=== PATIENT | male | born 1950 | race Caucasian/White ===

== ENCOUNTER 2020-06-06 15:57 | Emergency (ER) | payer BC ==
[~2020-06-06] VITALS: Ht 175.3 cm; Wt 65.8 kg
[2020-06-06] MEDS ORDERED: ELIQUIS5 MG PO (21:03)
[2020-06-06] MEDS ORDERED: ONDANSETRON ODT8 MG PO (21:12)
[2020-06-06] MEDS ORDERED: OXYCODONE HCL5 M1 PO (21:12)
== END 2020-06-06 21:56 | disposition short-term general hospital (02) ==
LOC: ED 15:57
DX: K85.90 Acute pancreatitis without necrosis or infection, unspecified (principal); I81 Portal vein thrombosis; E87.1 Hypo-osmolality and hyponatremia; F17.200 Nicotine dependence, unspecified, uncomplicated
CPT/HCPCS: 74177; 76705; 80053; 81001; 83690; 83735; 85025; 96361; 96375; 99285-25; J1170; J2405; J7030; Q9967

== ENCOUNTER 2020-08-04 17:27 | Emergency (ER) | payer BC ==
[~2020-08-04] VITALS: Ht 175.3 cm; Wt 61.2 kg
[~2020-08-04 17:27] MED LIST: ELIQUIS5 MG PO; ONDANSETRON ODT8 MG PO; OXYCODONE HCL5 M1 PO
== END 2020-08-05 01:35 | disposition short-term general hospital (02) ==
LOC: ED 17:27
DX: R17 Unspecified jaundice (principal); K55.059 Acute (reversible) ischemia of intestine, part and extent unspecified; I82.890 Acute embolism and thrombosis of other specified veins; K86.9 Disease of pancreas, unspecified; F17.200 Nicotine dependence, unspecified, uncomplicated; Z79.899 Other long term (current) drug therapy
CPT/HCPCS: 36415; 74177; 80053; 81001; 83690; 83735; 85025; 99285-25; Q9967

== ENCOUNTER 2020-10-19 20:02 | Emergency (ER) | payer BC ==
[~2020-10-19] VITALS: Ht 175.3 cm; Wt 60.8 kg
[~2020-10-19 20:02] MED LIST changes: +ATIVAN1 MG PO; +DEXAMETHASONE4 MG PO; +DOVONEX60 GM TOP; +NORCO 5-325 TA1 EACH PO; +OXYCODONE HCL5 MG PO; +TEMOVATE30 GM TOP; +ZOFRAN4 MG PO
[2020-10-19] MEDS ORDERED: GEMCITABINE HCL1 GM IV (20:29)
[2020-10-19] MEDS ORDERED: ABRAXANE100 MG IV (20:29)
[2020-10-19] MEDS ORDERED: LEVOFLOXACIN500 MG PO (23:12)
== END 2020-10-19 23:23 | disposition home or self-care (01) ==
LOC: ED 20:02
DX: R50.9 Fever, unspecified (principal); C25.9 Malignant neoplasm of pancreas, unspecified; Z20.828 Contact with and (suspected) exposure to other viral communicable diseases; F17.200 Nicotine dependence, unspecified, uncomplicated; Z79.899 Other long term (current) drug therapy
CPT/HCPCS: 71046; 80053; 81001; 83605; 85025; 87502; 99283-25; C9803; U0003

== ENCOUNTER 2021-03-18 08:55 | Day surgery (SDC) | payer BC ==
[~2021-03-18] VITALS: Ht 175.3 cm; Wt 68.2 kg
[~2021-03-18 08:55] MED LIST changes: +ABRAXANE100 MG IV; +BENADRYL25 MG PO; +GEMCITABINE HCL1 GM IV; +LEVOFLOXACIN500 MG PO
--- NOTE | 2021-03-18 12:14 | NUR ---
03/18/21 1214 Deb Herrera 1147 PT ARRIVED IN PACU SLEEPY WITH NO C/O'S. NOTICED 0.5CM SKIN TEAR TO L OUTER WRIST ON BONY PROMINENCE. CLEANED SKIN WITH WOUND CLEANSER AND PLACED ALEVYN GENTLE BORDER DRSG TO SITE. 1155 ICE [address] DR AT BEDSIDE TALKING WITH PT. NO C/O'S. 1213 PT TALKING WITH STAFF ABOUT UPCOMING [place] APPOINTMENTS.
--- NOTE | 2021-03-18 12:26 | NUR ---
PT IS BACK TO DS FROM PACU. CALL LIGHT WITHIN REACH. WATER ON BEDSIDE TABLE. PT IS REQUESTING JELLO. NO C/O'S PAIN. NO ADDITIONAL NEEDS AT THIS TIME.
--- NOTE | 2021-03-18 12:57 | NUR ---
PT ALERT, ORIENTED AND SUPPORTED BY HIS CAMILLA. THIS IS ANOTHER STEP IN HIS CANCER TREATMENT. EXPRESED CONFIDENCE IN DR HERNANDEZ, ALL QUESTIONS ASKED ANSWERED. PT REQUESTED PRAYER, WILL FOLLOW
--- NOTE | 2021-03-18 13:12 | OR ---
[facility] [address], [place] [address] Signed DATE OF OPERATION: 03/18/2021 SURGEON: Navin Hernandez MD PREOPERATIVE DIAGNOSIS: Pancreatic cancer. POSTOPERATIVE DIAGNOSIS: Pancreatic cancer. PROCEDURE: Diagnostic laparoscopy with liver biopsy and washings. ESTIMATED BLOOD LOSS: None. INDICATIONS: Edilia is a 71-year-old gentleman who last fall developed severe epigastric abdominal pain. He ended up with pancreatitis. However, he had developed jaundice, although the pancreatitis had resolved. A repeat CT scan showed a pancreatic tumor. He had endoscopic ultrasound and ERCP with placement of metal stent and biopsies. It came back adenocarcinoma of the pancreas. He went back and had a 2nd metal stent placed inside the 1st one. He has just completed chemotherapy with his medical oncologist. He apparently is borderline resectable. There is a question then whether he would undergo surgery versus radiation therapy at this time. I was asked by his pancreatic surgeon to undergo diagnostic laparoscopy with biopsies and washings. I had met with Edilia and his in the office. We had reviewed the above findings. We reviewed the diagnostic laparoscopy. They understand the expected intraop and postop course. There is risk to surgery including, but not limited to bleeding, infection, scarring, change in contour of the skin, damage to bowel, incisional hernias and other unforeseen comorbidities. They had expressed understanding and wished to proceed. PROCEDURE NOTE: After talking with Edilia and his in our preop area, we took him into the operating room. He was placed in the supine position under general endotracheal tube anesthesia. He was given preoperative antibiotics along with subcutaneous heparin. SCDs were utilized. He was then prepped and draped in the usual sterile fashion. We placed our Jonny trocar in the supraumbilical site under direct visualization without difficulty. We placed a 5 mm lateral right subcostal trocar as well as a 10 mm subxiphoid trocar under direct visualization without difficulty. We visually inspected the abdomen and Electronically Signed By: NAVIN HERNANDEZ MD 03/18/21 1312 PATIENT NAME: EDILIA PACE OPERATIVE REPORT DATE OF : 54 REPORT #: [id number] PHYSICIAN: NAVIN HERNANDEZ MD PCP: GLENN RODGERS MD REPORT IS CONFIDENTIAL AND NOT TO BE RELEASED WITHOUT AUTHORIZATION [facility] [address], [place] [address] Signed found no evidence of any metastatic disease. Specifically, nothing on the peritoneum, the mesentery, the omentum, the liver in particular or up over the dome of the liver and/or the diaphragm. We looked around the falciform ligament, it was unremarkable. Starke between the falciform ligament, the gallbladder with a small area that was not particularly concerning. Nevertheless, we decided to go ahead and sharply remove that from the surface of the liver and sent it off for pathologic review. We then cauterized that area gently. We looked around and underneath the liver on the right and left side as well as around the stomach, the lesser and greater curve and we looked around the gastrocolic ligament as well. We simply did not find any evidence for any metastatic disease. After this, we irrigated up over the liver and we withdrew around 250 mL of saline for washings. We then used our laparoscopic suturing device to pass 0 Vicryl suture on either side of the fascia of the subxiphoid trocar site. This was tied down to close this fascia primarily. After this, the gas was allowed to escape and the remaining two trocars were removed. We closed the fascia of the supraumbilical trocar site with interrupted [id number] and simple 0-Vicryl sutures. Local anesthetic was injected into all trocar sites. Each trocar site was irrigated and suctioned out until clear. The skin and dermis of each trocar site were closed with interrupted 3-0 subcuticular Monocryl sutures. Dry gauze and tape were applied to all three trocar sites. Edilia was then awakened from his anesthesia, extubated in the OR, and taken to the recovery room in stable condition. Navin Hernandez MD ALB/MODL /[id number] cc: MD Mayte Chau MD Robert C Quackenbush, MD Robert G Johnson, MD Jennifer Pasco, MD Electronically Signed By: NAVIN HERNANDEZ MD 03/18/21 1312 PATIENT NAME: EDILIA PACE OPERATIVE REPORT DATE OF : 54 REPORT #: [id number] PHYSICIAN: NAVIN HERNANDEZ MD PCP: GLENN RODGERS MD REPORT IS CONFIDENTIAL AND NOT TO BE RELEASED WITHOUT AUTHORIZATION [address] [address] Signed Nicolas Hagen MD Copies: NAVIN HERNANDEZ MD, SKYE C MD QUACKENBUSH, ROBERT C MD JOHNSON, ROBERT D DMD ~ Electronically Signed By: NAVIN HERNANDEZ MD 03/18/21 1312 PATIENT NAME: EDILIA PACE OPERATIVE REPORT DATE OF : 54 REPORT #: [id number] PHYSICIAN: NAVIN HERNANDEZ MD PCP: GLENN RODGERS MD REPORT IS CONFIDENTIAL AND NOT TO BE RELEASED WITHOUT AUTHORIZATION
--- NOTE | 2021-03-18 13:48 | NUR ---
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 HE IS ASSISTED UP OOB, ABLE TO AMBULATE HIMSELF TO THE BATHROOM AND BACK. LE 1330: PT HAS MET ALL DC CRITERIA AT THIS TIME. HE WOULD LIKE TO GO HOME. HE IS GIVEN VERBAL DC INSTRUCTIONS, BOTH HE AND HIS VERBALIZE UNDERSTANDING. PT IS EDUCATED ON HOW TO BEST DRESS HIMSELF. AND TO OPEN THE CURTAIN WHEN READY.
--- NOTE | 2021-03-18 13:54 | NUR ---
PT IS TAKEN TO VEHICLE IN . HE IS ABLE TO TRANSFER HIMSELF FROM TO CAR.
--- NOTE | 2021-03-24 10:20 | PATH ---
[facility] [address] [place], [place] [address] Signed SPECIMEN(S): A LIVER NEEDLE BIOPSY SPECIMEN SOURCE: A. LIVER NEEDLE BIOPSY CLINICAL HISTORY: Pancreatic cancer. FINAL PATHOLOGIC DIAGNOSIS: Liver, needle core biopsy: - Minute fragment of crushed fibrous tissue with benign-appearing biliary type ducts. COMMENT: The prior pancreas needle core biopsy from 08/05/2020 [id number]), diagnosed as adenocarcinoma, was reviewed. The ducts present in this biopsy specimen are lined by monotonous, small nuclei with no nuclear pleomorphism or chromatin irregularities. Mitoses are not identified. Liver parenchyma is not identified. Features of malignancy are not identified. The glands are morphologically distinctly different from the previously biopsied adenocarcinoma. The findings are nonspecific but could represent a portion of a bile duct hamartoma. Clinical correlation required. As part of [employer] Quality Improvement Program, this case was reviewed by another member of our pathology staff with subspecialty training in Gastrointestinal/Liver pathology. NAL:cml:C2NR MICROSCOPIC EXAMINATION: Histologic sections of all submitted blocks are examined by light microscopy. These findings, together with the gross examination, support the pathologic diagnosis. GROSS DESCRIPTION: The specimen, labeled "LG," and designated on the requisition "liver biopsy," is received in formalin and consists of a scanty tissue fragment measuring 0.5 x 0.1 x 0.1 cm. Specimen is inked with eosin, filtered, and entirely submitted in cassette (A1). Note: Original container with fluid retained for possible additional testing. AT (under the direct supervision of a pathologist) The Gross Description was prepared using a voice recognition system. The report PATIENT NAME: EDILIA PACE PATHOLOGY DATE OF : 54 REPORT #: [id number] PHYSICIAN: SARKIS PHILLIPS PCP: GLENN RODGERS MD REPORT IS CONFIDENTIAL AND NOT TO BE RELEASED WITHOUT AUTHORIZATION [facility] [address] [place] [address] Signed was reviewed for accuracy; however, sound-alike word errors, addition and/or deletions may occur. If there is any question about this report, please contact Client Services. PERFORMING LABORATORY: The technical component was [place] [address] (Lead Investigator: Leigha Massey MD; CLIA# [id number]). [facility], [address] [address] (CLIA# [id number]). Diagnostician: Smiley Choi MD Pathologist Electronically Signed 03/24/2021 Copies: ~ PATIENT NAME: EDILIA PACE PATHOLOGY DATE OF : 54 REPORT #: [id number] PHYSICIAN: [facility] PCP: GLENN RODGERS MD REPORT IS CONFIDENTIAL AND NOT TO BE RELEASED WITHOUT AUTHORIZATION
[2021-04-02] MEDS ORDERED: DECADRON4 MG PO (10:51)
== END 2021-03-18 13:45 | disposition home or self-care (01) ==
LOC: DS 08:55
PROVIDERS: ATTEND Colon & Rectal Surgery
PROC: 0FB04ZX Excision of Liver, Percutaneous Endoscopic Approach, Diagnostic (ICD-10-PCS; principal; 2021-03-18 10:15)
DX: C25.9 Malignant neoplasm of pancreas, unspecified (principal); Z91.041 Radiographic dye allergy status; Z79.01 Long term (current) use of anticoagulants
CPT/HCPCS: 00840; J0330; J0690; J1100; J1644; J1885; J2001; J2250; J2405; J2704; J7121

== ENCOUNTER 2021-12-18 19:15 | Emergency (ER) | payer BC ==
[~2021-12-18] VITALS: Ht 175.3 cm; Wt 49.9 kg
[~2021-12-18 19:15] MED LIST changes: +DECADRON4 MG PO
[2021-12-18] MEDS ORDERED: CEPHALEXIN500 MG PO (22:35)
--- NOTE | 2021-12-19 17:37 | EKG ---
[facility] [address] [facility] [place] [address] Signed Sinus rhythm with occasional premature ventricular complexes and premature atrial complexes Otherwise normal ECG When compared with ECG of 17-MAR-2021 14:53, premature ventricular complexes are now present premature atrial complexes are now present Confirmed by SAMUEL WEBER DO ([id number]) on 12/19/2021 5:37:08 PM Electronically Signed By: SAMUEL WEBER DO 12/19/21 1737 PATIENT NAME: EDILIA PACE NELY Electrocardiogram DATE OF : 54 PHYSICIAN: SAMUEL WEBER DO REPORT #: [id number] REPORT IS CONFIDENTIAL AND NOT TO BE RELEASED WITHOUT AUTHORIZATION
== END 2021-12-18 23:25 | disposition home or self-care (01) ==
LOC: ED 19:15
DX: N39.0 Urinary tract infection, site not specified (principal); R53.1 Weakness; L40.9 Psoriasis, unspecified; Z85.07 Personal history of malignant neoplasm of pancreas; F17.200 Nicotine dependence, unspecified, uncomplicated; Z91.041 Radiographic dye allergy status; Z79.01 Long term (current) use of anticoagulants; Z79.899 Other long term (current) drug therapy; Z20.822 Contact with and (suspected) exposure to COVID-19
CPT/HCPCS: 36415; 71045; 80053; 81001; 82310; 83690; 85025; 87088; 93005; 93010; 96374; 99285-25; J0696; J7040; U0003

== ENCOUNTER → 2022-01-10 | Emergency (ER) | payer BC ==
[~2022-01-10] VITALS: Ht 175.3 cm; Wt 48.3 kg
[~2022-01-10] MED LIST changes: +CEPHALEXIN500 MG PO
--- OUTSIDE RECORDS SUMMARY | 2022-01-10 09:04 | XMS ---
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 Care History Medical/Surgical 06/09/2020 [facility] - PATIENT HAS AN APT TO ESTABLISH CARE WITH DR VIVAR ON 06/24/2020. - CHW DISCUSSED RECENT ED VISIT WITH PCP AND THEY WILL LOOK INTO AN EARLIER APT IF PATIENT IS AVAILABLE. E.D. VISIT COUNT (12 MO.) 2 [facility] TOTAL 2 NOTE: Visits indicate total known visits. 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
--- NOTE | 2022-01-10 23:56 | EKG ---
[facility] [address] [facility] [place] [address] Signed Atrial fibrillation with rapid ventricular response Nonspecific ST and T wave abnormality Abnormal ECG When compared with ECG of 18-DEC-2021 20:46, Atrial fibrillation has replaced Sinus rhythm Vent. rate has increased BY 73 BPM Non-specific change in ST segment in Inferior leads ST now depressed in Anterolateral leads Nonspecific T wave abnormality now evident in Inferior leads Nonspecific T wave abnormality now evident in Lateral leads Confirmed by CRISTY TOBIN MD ([id number]) on 01/10/2022 11:55:55 PM Electronically Signed By: CRISTY TOBIN MD 01/10/22 2356 PATIENT NAME: EDILIA PACE Electrocardiogram DATE OF : 54 PHYSICIAN: CRISTY TOBIN MD REPORT #: [id number] REPORT IS CONFIDENTIAL AND NOT TO BE RELEASED WITHOUT AUTHORIZATION
== END ==
LOC: ED 08:55
DX: A41.9 Sepsis, unspecified organism (principal); C25.9 Malignant neoplasm of pancreas, unspecified; K75.0 Abscess of liver; L40.9 Psoriasis, unspecified; F17.200 Nicotine dependence, unspecified, uncomplicated; Z79.01 Long term (current) use of anticoagulants; Z79.899 Other long term (current) drug therapy; Z20.822 Contact with and (suspected) exposure to COVID-19
CPT/HCPCS: 36415; 71045; 71260; 74177; 80053; 81001; 83605; 83690; 83735; 85025; 87040; 93005; 93010; 96366; 96367; 96375; 96376; 99285-25; A9270; C9803; J0692; J1170; J2250; J2370; J3010; J7030; J7060; J7121; Q9967; U0003

== ENCOUNTER 2022-02-08 14:20 | Inpatient (IN) | payer BC, MEDICARE ==
[~2022-02-08] VITALS: Ht 175.3 cm; Wt 53.5 kg
--- NOTE | ~2022-02-08 | OR ---
[facility] [address], [place] [address] Draft DATE OF OPERATION: 02/11/2022 SURGEON: Daniel Austin MD PREOPERATIVE DIAGNOSES: 1. Significant anemia with episodic rectal bleeding. 2. History of stage IV pancreatic cancer with hepatic metastases, status post common duct stenting. 3. Relatively recent hepatic abscess requiring percutaneous drain (no longer draining). POSTOPERATIVE DIAGNOSES: 1. Giant bulbar duodenal ulcer, possibly related to a primary malignancy. 2. Small polyp right transverse colon (excised). PROCEDURES: 1. Esophagogastroduodenoscopy with biopsies. 2. Total colonoscopy to cecum with cold morcellation polypectomy x1. ANESTHESIA: Intravenous sedation, propofol infusion, Kelvin Goyal CRNA INDICATIONS: This 72-year-old white man is a patient of Dr. Glenn Rodgers who was admitted by Dr. Frias on February 08, 2022 for clinical complaint of syncope and finding of profound anemia. He has been transfused with 2 units of packed red cells and his hematocrit is now 26. He has had a small amount of rectal bleeding and no hematemesis. He has underlying pancreatic cancer which has shown hepatic metastases. He underwent common duct stenting quite sometime back and is under treatment of Dr. Woods and others with palliative chemotherapy. The patient has had no hematemesis. The patient did develop a number of weeks ago hepatic abscess which was treated by percutaneous drain which remains in place. He has had no evidence of bleeding through the drain itself and no hematemesis. He is admitted to undergo upper endoscopy and colonoscopy to better characterize the source of his anemia. He understands as does his the risk of bleeding, infection, perforation, and so on. FINDINGS: Upper endoscopy confirmed the source of his anemia. This was a very large bulbar ulcer which may be related to malignancy and possibly direct tumor extension. The common duct ampullary area was patent and easily identified. Impending obstruction of the junction PATIENT NAME: EDILIA PACE OPERATIVE REPORT DATE OF : 54 REPORT #: [id number] PHYSICIAN: DANIEL AUSTIN MD PCP: GLENN RODGERS MD REPORT IS CONFIDENTIAL AND NOT TO BE RELEASED WITHOUT AUTHORIZATION [facility] [address], [place] [address] Draft between the bulb and 2nd portion of the duodenum was noted, however, the scope was able to be manipulated through it to normal-appearing 3rd and 4th portion of the duodenum. The stomach itself had mild chronic inflammation. Biopsies were obtained of the ulcer to assess for malignancy as well as the stomach to assess for H pylori. The CLOtest was negative. There was distal esophagitis as well. On colonoscopy, complete colonoscopy was undertaken. There was a small polyp of the right transverse colon. There were AVMs noted of the rectum, which were not bleeding. DESCRIPTION OF PROCEDURE: The patient was brought to the endoscopy suite and placed in lateral decubitus position, given intravenous sedation with propofol infusional technique by the hot plate plywood press offbearer. Full cardiopulmonary monitoring was maintained. A bite block was placed and an Olympus video upper endoscope passed in the hypopharynx. The vocal cords were normal. The scope was advanced down the esophagus. I did not see evidence of portal hypertension (varices). The scope was passed into the stomach, which was insufflated with air. There was no sign of blood or clot. There was chronic inflammatory change. The pylorus was normal. Scope was passed into what appeared to be a cavernous large bulbar ulceration. There was no sign of active bleeding. The waxy consistency of the ulcers suggested possibility this represents direct tumor extension, though that is not certain. Various manipulations were required to pass beyond the bulbar portion to the more distal duodenum and area highly consistent with a patent ampulla was noted. Bile was seen to egress from the area. I saw no stent proper presuming that a stent is more proximally inserted into the common duct as had been postulated. Passage beyond this area to normal duodenum was rather challenging and obstruction of this limb is clinically a hazard it would appear. Ultimately, the scope was passed beyond it to a normal-appearing 3rd and 4th portion of the duodenum. The scope was withdrawn through this area and the edges of the ulceration were biopsied as was the base of the ulceration. Upon withdrawal of the stomach, the pylorus appeared to be normal. Biopsies were taken of the antrum for both TRELL and pathologic testing. Retroflexed view showed reasonable flap valve. The scope was withdrawn and distal esophagus was quite markedly inflamed and biopsied, but not neoplastic proper. Further withdrawal of the scope was undertaken and no other findings of concern. Plans were then made for colonoscopy. Digital rectal examination was normal. An Olympus video colonoscope was passed in the rectum and manipulated throughout the colon. In the right transverse colon, there was a small sessile polyp which was excised with cold morcellation technique. The scope was advanced beyond this to the cecum, which was normal. Withdrawal of scope was undertaken showing reasonably prepped bowel. There were no other findings of concern until the rectum where there were multiple arteriovenous malformations, none of which were bleeding or looked problematic. Scope PATIENT NAME: EDILIA PACE OPERATIVE REPORT DATE OF : 54 REPORT #: [id number] PHYSICIAN: DANIEL AUSTIN MD PCP: GLENN RODGERS MD REPORT IS CONFIDENTIAL AND NOT TO BE RELEASED WITHOUT AUTHORIZATION [facility] [address] [place], [place] [address] Draft was removed and the patient was taken to the recovery room in good condition. CONCLUSION DIAGNOSIS: No doubt his anemia is related to the profound ulcerative changes of the bulbar duodenum and suspect this may represent direct neoplastic process of the pancreas. Issues to be dealt with would include the possibility of not eminent but progression to duodenal obstruction. Options of management might include stenting versus palliative gastrojejunal bypass. For now, we will plan on intensive treatment of the ulcerative area of the duodenum. If prompt healing can be accomplished, then need for consideration for duodenal bypass or stenting can be avoided or delayed. If malignancy is noted at the base of the ulceration, ulcer treatment will be ineffective obviously. MD SARAH Redding/DONNIEL /[id number] cc: MD Jade Kim MD Robert C Quackenbush, MD Lohith Veerappa Reddy, MD Copies: GLENN RODGERS DMD, CYNTHIA MD QUACKENBUSH, ROBERT C MD REDDY, LOHITH VEERAPPA MD ~ PATIENT NAME: EDILIA PACE OPERATIVE REPORT DATE OF : 54 REPORT #: [id number] PHYSICIAN: DANIEL AUSTIN MD PCP: GLENN RODGERS MD REPORT IS CONFIDENTIAL AND NOT TO BE RELEASED WITHOUT AUTHORIZATION
--- OUTSIDE RECORDS SUMMARY | 2022-02-08 14:28 | XMS ---
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 Care History Medical/Surgical 06/09/2020 [facility] - PATIENT HAS AN APT TO ESTABLISH CARE WITH DR VIVAR ON 06/24/2020. - CHW DISCUSSED RECENT ED VISIT WITH PCP AND THEY WILL LOOK INTO AN EARLIER APT IF PATIENT IS AVAILABLE. Kayce VISIT COUNT (12 MO.) 3 DONAVAN [place] TOTAL 3 NOTE: Visits indicate total known visits. ED/UCC VISIT TRACKING (12 MO.) 02/08/2022 14:21 [facility] [place] TYPE: Emergency COMPLAINT: - SYNCOPE EPISODE 01/10/2022 08:56 [facility] [place] TYPE: Emergency COMPLAINT: - WEAKNESS DIAGNOSES: - MCFP (current) use of anticoagulants - Contact with and (suspected) exposure to COVID-19 - Nicotine dependence, unspecified, uncomplicated - Other mcc (current) drug therapy - Weakness - Malignant neoplasm of pancreas, unspecified - Psoriasis, unspecified - Abscess of liver - Sepsis, unspecified organism 12/18/2021 19:15 [facility] [place] TYPE: Emergency COMPLAINT: - WEAKNESS DIAGNOSES: - Radiographic dye allergy status - Personal history of malignant neoplasm of pancreas - Other mcc (current) drug therapy - Contact with and (suspected) exposure to COVID-19 - MCFP (current) use of anticoagulants - Psoriasis, unspecified - Weakness - Nicotine dependence, unspecified, uncomplicated - Urinary tract infection, site not specified INPATIENT VISIT TRACKING (12 MO.) 01/11/2022 02:23 [facility] TYPE: General Medicine DIAGNOSES: - Unspecified severe protein-calorie malnutrition - Sepsis, unspecified organism - Abscess of liver - Liver Abscess, Pancreatic Ca, Hypotension - Severe sepsis with septic shock [email or web address]
[2022-02-08] MEDS ORDERED: AUGMENTIN 500-1 EACH PO (15:34)
--- NOTE | 2022-02-08 19:44 | NUR ---
PT CAME TO FLOOR WITH ORDER FOR 2 UNITS PRBC. VERIFIED WITH PT HE WAS GETTING BLOOD AND OBTAINED A STICKER FROM HIS BAND AND WENT TO LAB. ALL MATCHED IN LAB. WENT TO VERIFY BLOOD CHECKS WITH PT AND WEST ZARAGOZA AND THE BLOOD BAND MARINE DESIGNER THE CONSENT DID NOT MATCH THE BLOOD BAND ON PT AND ON THE ACTUAL BLOOD. STOPPED, CALLED CUSTOM GRINDER, LAB AND ER. SPOKE WITH WEST CHARLES AND SHE EXPLAINED THAT THE FIRST SAMPLE HAD CLOTTED SO LAB HAD MADE HER DRAW A NEW SAMPLE AND REBAND BUT THE CONSENT HAD BEEN MISSED WITH THE NEW BAND. CUSTOM GRINDER VILMA TOOK THE BLOOD BACK TO LAB. CALLED LAB AND FRANK CAME DOWN WITH THE TWO SAMPLES AND EXPLAINED THE SAME THING. VERIFIED CORRECT PT AND BLOOD BAND NUMBER. EXPLAINED THE WHOLE THING TO THE PT WHOM SIGNED THE NEW CONSENT DR ARANGO HAD FILLED OUT WITH THE CORRECT BAND NUMBER.
--- NOTE | 2022-02-08 20:30 | NUR ---
UPDATED PT TO THE LENGTH OF CT SCAN, IV ASSESS HAS BEEN LOST AND HYDROMETEOROLOGIST'S ARE HAVING DIFFICULTY RESTARTING SITE. SHE THANKED THIS RN FOR THE UPDATE.
--- NOTE | 2022-02-08 21:07 | NUR ---
Med-Surg charge lpn received call from CT regarding pt's iv status. This RN and WEST Seymour from [facility]-surg offered to assist CT staff with new iv placement. This RN was able to visualize and palpate a vein in the right posterior forearm at which an 18g iv was attempted; no flash was noted in the hub and unable to pull blood back. This RN made a second attempt, this time with a 20g iv in the right AC, which again was unsuccessful. WEST Seymour attempted to place a 20g iv in the right AC, which unfortunately was unsuccessful. Med-Surg charge lpn and house superintendent, Xavier, were made aware of the situation, and Xavier agreed to attempt an iv start in CT after 3 unsuccessful attempts were made.
--- NOTE | 2022-02-08 21:11 | NUR ---
NO IV ACCESS OF NOW, PT BACK TO HIS ROOM AT THIS TIME. MACHINE CLIPPER WEST ESPINOZA HAS CALL PICC LINE NURSE TO COME IN AND EVALUATE FOR PICC PLACEMENT, BLOOD IN THE LAB IS READY ONCE ACCESS IS OBTAINED. PT'S AT BEDSIDE.
--- NOTE | 2022-02-08 21:34 | NUR ---
[address], IV ATTEMPTS X 3 BY THIS RN UNSUCCESSFUL, PATIENT TAKEN BACK TO MED/SURG FLOOR VIA WHEELCHAIR AFTER CT, DISCUSSED WITH DR ARANGO REGARDING PATIENT IV ACCESS.
--- NOTE | 2022-02-08 22:00 | NUR ---
CALLED IN REGARDS TO CT SCAN REPORT BACK AND EXTENSIVE, SHE SAID SHE WOULD READ IT.
--- NOTE | 2022-02-08 22:12 | NUR ---
V/S TAKEN AT THIS TIME PRIOR TO PICC NURSE STARTING PROCEDURE. PT WITH THE WIFES JEWELRY MAKER USED URINAL EARLIER THIS SHIFT, THIS RN IS NOT AWARE OF AMOUNT OF URINE OUT PICC NURSE IN ROOM SETTING UP STERILE FIELD UNABLE MOVE ABOUT THE ROOM.
--- NOTE | 2022-02-08 23:10 | NUR ---
MIDLINE INSERTION NOTE WAS ASKED TO COME IN TO PLACE A MIDLINE AFTER MULTIPLE FAILED IV ATTEMPTS. PT AND PT'S PROVIDED THE RISKS AND BENEFITS. BOTH PARTIES WANT TO PROCEED WITH A MIDLINE. THE VEIN WAS ACCESSED ON THE THIRD ATTEMPT. THE TIP OF THE CATHETER WAS EASILY VISUALIZED IN THE VEIN. BRISK NONPULSITILE BLOOD WAS RETURNED AND THE MIDLINE FLUSHE EASILY. THE PT REPORTED NO PAIN WITH FLUSHING. EDUCATION PROVIDED TO PT AND .
--- NOTE | 2022-02-08 23:27 | NUR ---
MIDLINE IN PLACE AT THIS TIME, BRISK BLOOD RETURN, BLOOD IS INFUSING NOW. 15MIN AT 75ML/HOUR. THIS RN AT BEDSIDE. EDUCATION PROVIDED ON SIGNS OR SYMPTOMS TO NOTIFY THIS RN RIGHT AWAY, PT VERBALIZED ALL UNDERSTANDING, PT'S ALSO AT BEDSIDE AT THIS TIME.
--- NOTE | 2022-02-08 23:47 | NUR ---
FOLLOW UP 15MIN V/S STABLE NO NEW CONCERNS, PT REPORTS HE IS NOT HAVING ANY NEW SYMPTOMS SINCE BLOOD STARTED INFUSING. PT HAS REPORTED PAIN IN ABD PRIOR TO BLOOD INFUSION, TYLENOL WAS ADMINISTERED AT ABOUT 2245, PT CONTINUES TO REPORT HAVING ELEVATED PAIN TRANSVERSE ACROSS ABD, HE ALSO REPORTS "THAT TYLENOL REALLY HASNT HELPED MUCH" THIS RN ASKED PT IF HE TAKES ANYTHING FOR PAIN AT HOME? PT SAID "YES, I TAKE TYLENOL" HIS SAID "HE HAS A PRESRICTION FROM THE START OF THIS OF [place], HE JUST TAKES THIS ONCE IN AWHILE" THIS MEDICATION IS NOT ON HIS CURRENT HOME MED LIST. THIS RN WILL NOTIFY .
--- NOTE | 2022-02-08 23:54 | NUR ---
WARM PACK PROVIDED TO PT EARLIER, HE SAID THAT THE WARM PACK IS HELPING HE SAID "ITS STILL THERE BUT NOT BAD"
--- NOTE | 2022-02-09 00:15 | NUR ---
TALKED TO AT NURSES STATION IN REGARDS TO PT PAIN AND HOME TREATMENT OF PAIN, TYLENOL AND OCCASSIONALLY NORCO, SHE SAID SHE WOULD PUT AN ORDER IN.
--- NOTE | 2022-02-09 01:04 | NUR ---
IV PUMP ALARMING, ADDITIONAL VOLUME ADDED TO PUMP, BLOOD PRODUCTS INFUSING MIDLINE WNL. pt AWAKE RESTING IN BED. DENIES ANY NEEDS AT THIS TIME.
--- NOTE | 2022-02-09 01:18 | NUR ---
PT RESTING IN BED EYES CLOSED RR REGULAR AT 17 BPM. NO DISTRESS NOTED, 1ST UNIT OF BLOOD NEARLY COMPLETE AT THIS TIME.
--- NOTE | 2022-02-09 02:10 | NUR ---
2ND UNIT BLOOD NO IMFUSING, PT ALERT AND ORIENTED, HE REPORTS HE IS FEELING BETTER AT THIS TIME, HE SAID "I FEEL FINE" WHEN ASKED IF HE HAD ANY NEW SYMPTOMS DISCOMFORT ANYWHERE. NO DISTRESS NOTED. PT TOLERATIN G BLOOD TRANSFUSION WELL.
--- NOTE | 2022-02-09 03:10 | NUR ---
SECOND UNIT OF COMPLETE AT THIS TIME, NO SIGNS OR SYMPTOMS OF INFUSION REACTION AT THIS TIME. PT ALERT AND ORIENTED, HE REPORTS HE FEELS A LOT BETTER THAN WHEN HE ADMITTED. V/S STABLE.
--- NOTE | 2022-02-09 04:39 | NUR ---
PT ADMITTED JUST BEFORE SHIFT CHANGE. HE HAD BLOOD ADMINISTRATION ORDERS, HE WENT TO CT SCAN AFTER SHIFT CHANGE, IT WAS NOTED AT IN CT SCAN THAT HIS IV WAS NOT PATENT, AFTER SEVERAL ATTEMPTS BY FLUID DYNAMICIST, PT BACK TO ROOM AFTER SCAN, PICC LINE NURSE CALLED, AFTER TWO FAILED ATTEMPTS NIK Puckett RN WAS ABLE TO OBTAIN A SUCCESSFUL MID LINE PLACEMENT ON THIRD ATTEMPT SHORTLY AFTER PLACEMENT BLOOD ADMINISTRATION STARTED 2248, SECOND UNIT COPLETE AT 0310. NO REACTION SYMPTOMS. HE REPORTS FEELING MUCH BETTER AFTER INFUSION, V/S STABLE. NO NEW CONCERNS AT THIS TIME. DISCUSSED BREAKFAST PROTOCOL FOR ORDERING. MENU PROVIDED. PT ALERT AND ORIENTED.
--- NOTE | 2022-02-09 06:33 | EKG ---
[facility] [address] [place] [address] Signed Normal sinus rhythm Normal ECG When compared with ECG of 10-JAN-2022 21:54, Sinus rhythm has replaced Atrial fibrillation Vent. rate has decreased BY 82 BPM Non-specific change in ST segment in Inferior leads ST no longer depressed in Lateral leads Nonspecific T wave abnormality no longer evident in Inferior leads Confirmed by MIGUEL ARANGO MD ([id number]) on 02/09/2022 6:33:49 AM Electronically Signed By: MIGUEL ARANGO MD 02/09/22 0633 PATIENT NAME: EDILIA PACE Electrocardiogram DATE OF : 54 PHYSICIAN: MIGUEL ARANGO MD REPORT #: [id number] REPORT IS CONFIDENTIAL AND NOT TO BE RELEASED WITHOUT AUTHORIZATION
--- NOTE | 2022-02-09 07:57 | NUR ---
REPORT RECEIVED FROM [facility]. PT IN BED AWAKE AND LISTENED TO REPORT. PT COLOR APPEAR MORE PINK THAN THE PALE LAST NIGHT. DENIES CONCERNS, JUST WAITING FOR BREAKFAST.
--- NOTE | 2022-02-09 09:59 | NUR ---
PT UP TO RESTROOM AFTER THIS RN CHANGED THE DRESSING AROUND THE DRAIN SITE. WAS SATURATED WITH YELLOW LIQUID. STATES THAT IS NORMAL AND EXPECTED. HE CHANGES IT SEVERAL TIMES A DAY. SITE APPEARS WELL APPROX WITH STITCHES INTACT. NO REDNESS NOTED. PT STATES IT HAS REALLY HELPED WITH THE PAIN. DENIES NEEDING PRN ATT.
--- NOTE | 2022-02-09 10:00 | NUR ---
PT CALLED TO USE RESTROOM. AMBULATED WELL UNASSISTED TO RESTROOM. ADMINISTERED MORNING MEDS AND OFFERED PRN PAIN MEDS, HE DECLINED AND STATED THAT HE WAS NOT HAVING MUCH PAIN ATT.
--- NOTE | 2022-02-09 10:15 | NUR ---
PATIENT BACK TO BED FROM BATHROOM, SBA. VITALS AND I&O'S CHARTED. FRESH WATER GIVEN. RN IN ROOM. CALL LIGHT IN REACH. NO FURTHER NEEDS AT THIS TIME.
--- NOTE | 2022-02-09 10:20 | NUR ---
Spoke with pt and his . He and live in town in a house with 3 steps. He has handrails. Pt states he is weak, but he is not ready fo hospice. I spoke with [facility] and they are able to provide palliative care. Pt and are interested in this. Passed this on to Dr. Frias.
--- NOTE | 2022-02-09 10:46 | NUR ---
IN ROOM ROUNDING ON PT - PRESENT.
--- NOTE | 2022-02-09 11:03 | NUR ---
PT HAD LARGE LIQUID DARK BLOODY APPEARING STOOL. PT DENIES STOMACH CRAMPING OR PAIN ATT.
--- NOTE | 2022-02-09 13:42 | NUR ---
CONNECTED WITH PT'S IN [facility]. SHE WAS STEPPING OUT TO MAKE A FEW CALLS AND UPDATED ME ON PT. JUST RETURNED FROM A LENGHTY STAY AT [facility] IN [place]. HAS HAD DIFFICULTY SINCE RETURNING WITH BLEEDING. SHE IS TIRED-VERY EVIDENT. GAVE ENCOURAGEMENT AND WILL FOLLOW.
--- NOTE | 2022-02-09 14:13 | NUR ---
PT IN ROOM AFTER GOING DOWNSTAIRS FOR SOME LUNCH. SHOWED THIS RN HOW SHE FLUSHES THE DRAIN. FLUSHED PER HER INSTRUCTIONS. SMALL AMT OF RESISTANCE AT START AND THEN IT FLOWED FREELY. PT TOLERATED WELL. CHANGED IVF BAG.
--- NOTE | 2022-02-09 14:48 | NUR ---
PT ALERT, ORIENTED AND SUPPORTED BY HIS CAMILLA. PT ADMITTED HE IS STRUGGLING WITH HOW WEAK HE IS. HE DOES FEEL BETTER THAN YESTERDAY. BED ALARM ON-HOPED HE COULD MAYBE SIT IN CHAIR FOR AWHILE. SHARED WITH [facility]-SHE WILL FOLLOW UP. HAD GOOD VISIT WITH PT, REQUESTED PRAYER. LEFT G.POST AND WILL FOLLOW NEEDED
[2022-02-09] MEDS ORDERED: AMOX TR-K CLV1 EAC1 PO (15:31)
[2022-02-09] MEDS ORDERED: ELIQUIS5 MG PO (15:32)
[2022-02-09] MEDS ORDERED: HYDROCODON-ACE1 EA10 PO (15:58)
[2022-02-09] MEDS ORDERED: TYLENOL EXTRA500 MG PO (15:59)
--- NOTE | 2022-02-09 15:59 | NUR ---
MED REC COMPLETE
--- NOTE | 2022-02-09 16:00 | NUR ---
PT ATE ALL OF LUNCH, STATED IT WAS OK. CHATTED WITH HIM AND HIS FOR AWHILE.
--- NOTE | 2022-02-09 17:38 | NUR ---
PT SITTING IN BED VISITING FAMILY. WILL TAKE AB WITH FOOD IT UPSETS HIS STOMACH IF HE DOESNT.
--- NOTE | 2022-02-09 19:15 | NUR ---
IN ROOM FOR REPORT, PT IS AWAKE IN BED WITH VISITING IN THE ROOM. PT REPORTS 6/10 PAIN. DAYSHIFT WEST [facility]NAN TO GET PEQUOT LAKES FOR PT. HE DENIES FURTHER NEEDS. CALL LIGHT IS CLOSE. IV IS INFUSING FINE.
--- NOTE | 2022-02-09 20:52 | NUR ---
IN ROOM TO ASSESS PT AND ADMINISTER MEDICATIONS. PT REPORTS PAIN 5/10 AND WOULD LIKE TYLENOL AND MELATONIN LATER WHEN HE GOES TO SLEEP. IV FLUIDS ARE INFUSING FINE AND MIDLINE HAS GOOD BLOOD RETURN. PILLOWS BEHIND BACK/COCCYX. PT DENIES FURTHER NEEDS AT THIS TIME. CALL LIGHT IS CLOSE.
--- NOTE | 2022-02-09 22:35 | NUR ---
IN ROOM TO REPOSITION PT IN BED, ALSO ADMINISTERED TYLENOL FOR 6/10 PAIN AND NEW BAG OF IV FLUID INFUSING AND GAVE MELATONIN. PT DENIES FURTHER NEEDS. CALL LIGHT IS CLOSE, VS AND I&O'S ENTERED, NOTHING DRAINING FROM G TUBE.
--- NOTE | 2022-02-10 00:52 | NUR ---
PT IS RESTING WITH EYES CLOSED, RR IS EVEN AND UNLABORED. CALL LIGHT IS CLOSE AND IV IS INFUSING FINE.
--- NOTE | 2022-02-10 01:51 | NUR ---
CHECKED ON PT AFTER HE CALLED TO HAVE URINAL EMPTIED. HE DENIES PAIN AT THIS TIME. PT STATES HE IS SCOOTING HIMSELF AROUND IN BED AND DOES NOT NEED TO BE REPOSITIONED. PT USED URNIAL AGAIN. IV IS INFUSING FINE, PT DENIES FURTHER NEEDS, CALL LIGHT IS CLOSE.
--- NOTE | 2022-02-10 01:51 | NUR ---
CALL LIGHT ANSWERED. URINAL EMPTIED, 300 MLS YELLOW URINE. pt USING URINAL AT THIS TIME. CALL LIGHT IN REACH.
--- NOTE | 2022-02-10 03:41 | NUR ---
PT IS RESTING WITH EYES CLOSED, RR IS EVEN AND UNLABORED. CALL LIGHT IS CLOSE. IV IS INFUSING FINE.
--- NOTE | 2022-02-10 05:55 | NUR ---
IN ROOM TO ADMINISTER NORCO FOR 5/10 BACK PAIN. ADJUSTED PILLOWS BEHIND PT WITH PILLOWS UNDER EACH SIDE OF HIS BOTTOM. REPLACED DRAIN SPONGE IT HAD YELLOW DRAINAGE ON IT. DRAINED HEPATIC DRAIN OF 10MLS YELLOW DRAINAGE. LABS DRAWN FROM MIDLINE AFTER STOPPING IV FLUIDS FOR 3 MINUTES. WASTED 6MLS OF BLOOD AND SAMPLES WERE TAKEN AND LABELED BY LAB STAFF. PT DENIES FURTHER NEEDS AT THIS TIME. CALL LIGHT IS CLOSE.
--- NOTE | 2022-02-10 07:18 | NUR ---
REPORT RECEIVED FROM [facility]. PT RESTING IN BED ON LEFT SIDE. PT REPOSRTS 6/ PAIN "IN MY BACKSIDE." PT RECENLY RECEIVED PAIN MEDICATION AND STATES LYING ON HIS SIDE HELPS. PT DENIES ADDITIONAL REQUESTS OR COMPLAINTS. CALL LIGHT WITHIN REACH. BED RAILS UP.
--- NOTE | 2022-02-10 07:35 | NUR ---
MORNING ASSESSMENT AND MEDICATION DUE. PT CONTINUES RESTING IN BED, NOW ON BACK WITH HEAD OF BED ELEVATED TO 51 DEGREES. PT REPORTS 5/10 PAIN IN "MY BACKSIDE" AND REPORTS PAIN MEDICATION SEEMS TO BE "HELPING." PT REPOSITIONS SELF IN BED. MIDLINE WNL, BRISK BLOOD RETURN NOTED. PT ALERT AND OREINTED TO ALL. +3 PITTING EDEMA CONTINUES IN FEET. +2 PITTING EDEMA UP THROUGH KNEE LEVEL. LEGS ELEVATED ON A PILLOW. BOWEL TONES ACTIVE, PT REPORTS ABDOMEN IS "A LITTLE SORE" WITH PALPATION. PT DENIES NASUEA. REDENESS CONTINUES TO COCCYX. PT ENCOURAGED TO AMBULATE AND CHANGE POSITIONS FREQUENTLY. PT VERBALZIES UNDERSTANDING. HEPATIC DRAIN TO ABDOMEN REMAINS WNL. MINIMAL YELLOW DRAINAGE NOTE IN BAG AT THIS TIME. GAUZE C/D/I. PT DENIES ADDITIONAL REQUESTS OR COMPLAINTS AT THIS TIME. PT DECLINES TIME UP TO CHAIR AT THIS TIME. PT ENCOURAGED TO CALL NURSING STAFF WHEN HE IS READY TO GET UP, PT VERBALIZES UNDERSTANDING. CALL LIGHT WITHIN REACH. BED RAILS UP.
--- NOTE | 2022-02-10 08:52 | NUR ---
STERLING IS LAYING IN BED REFRESHED WATER. I&O AND VITALS CHARTED. CALL LIGHT WITHIN REACH. NO FURTHER TASKS AT THIS TIME
--- NOTE | 2022-02-10 09:06 | NUR ---
THIS RN TO ROOM TO CHECK ON PT. PUMP ALARMING, FLUIDS COMPLETE. NEW FLUID BAG HUNG. PT REPORTS 5/10 PAIN IN HIS BACKSIDE AND STATES HE IS CHANGING POSITION TO RELEAVE SORENESS. PT DENIES NAUSEA AFTER CLEAR LIQUID TRAY. BOWEL PREP EDUCATION DONE. PT REPORTS HE WOULD LIKE TO START BOWEL PREP ARROUND 1000. NO ADDITIONAL REQUESTS OR COMPLAINTS. CALL LIGHT WITHIN REACH. BED RAILS UP.
--- NOTE | 2022-02-10 09:47 | NUR ---
THIS RN TO ROOM TO CHECK ON PT. BOWEL PREP GIVEN, SEE MAR. PT UPDATED ON PLAN OF CARE AND MEDICATION EDUCATION DONE. PT VERBALIZES UNDERSTANDING AND STATES HIS QUESTIONS HAVE BEEN ANSWERED. PT REPORTS 4/10 PAIN IN HIS "BACKSIDE" AND REQUESTS PAIN MEDICATION. SEE MAR FOR MEDICATION GIVEN. BACKSIDE SUPPORTED WITH PILLOWS AND EGG CRATE MATTRICE. PT ENCOURAGED TO GET UP FROM BED, DECLINES AT THIS TIME. NO ADDITIONAL REQUESTS OR COMPLAINTS. CALL LIGHT WITHIN REACH. BED RAILS UP.
--- NOTE | 2022-02-10 10:00 | NUR ---
Pt awaiting C scope tomorrow. Discussed in [address] Frias.
--- NOTE | 2022-02-10 11:10 | NUR ---
THIS RN TO ROOM TO CHECK ON PT. PT RESTING IN BED VISITING WITH FAMILY. PT REPORTS PAIN IN HIS BACKSIDE IS NOW 3/10 AND TOLERABLE. PT HAS MADE IT THROUGH 25% OF HIS MIRILAX. PT ENOCURAGED TO FINISH DOES BY 1500 TODAY. CAMILLA, PTS , UPDATED ON PLAN OF CARE, VERBALIZES UNDERSTANDING AND STATES HER QUESTIONS HAVE BEEN ASNWERED. NO ADDITIONAL REQUESTS OR COMPLAINTS. CALL LIGHT WITHIN REACH. BED RAILS UP.
--- NOTE | 2022-02-10 11:40 | NUR ---
DR. AUSTIN TO BEDSIDE FOR ROUNDS. PT AND PTS FAMILY UPDATED ON PLAN OF CARE. PT AND VERBALIZE UNDERSTANDNG AND STATE THEIR QUESTIONS HAVE BEEN ANSWERED. NO ADDITIONAL REQUESTS OR COMPLAINTS. CALL LIGHT WITHIN REACH. BED RAILS UP. PTS AT BEDSIDE.
--- NOTE | 2022-02-10 12:11 | CONS ---
[facility] [address], [place] [address] Signed DATE OF CONSULTATION: 02/09/2022 CONSULTING PHYSICIAN: Daniel Austin MD. REQUESTING PHYSICIAN: Miguel Frias MD. PROBLEM: Anemia and rectal bleeding. 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 I have not seen him in quite some time. In 2019, he was diagnosed with pancreatic cancer and has undergone endoscopic stenting with exchange of the stent sometime thereafter. He additionally has been noted to have multiple metastatic lesions to the liver and has had developed a hepatic abscess, which required percutaneous drain placement in [place], [place]. Review of the medical record shows he had undergone laparoscopy with peritoneal biopsies by Dr. Watts in February of 2021, nearly a year ago. The patient has more recently been on palliative therapy under the direction of Dr. Regalado and had been evaluated at [facility] in the Oncology Division as well. He has undergone radiation and chemotherapy. He has been on gemcitabine and Abraxane. His most recent issue was presentation to the emergency room at approximately 5:30 p.m. yesterday for what appeared to be syncopal episode. He was found to have a hematocrit of 18.2 with a white count of 7 and a platelet count of 257,000. His liver enzymes are elevated generally and alkaline phosphatase was quite markedly elevated at 2146. He was admitted by Dr. Frias at this time and was reported to have some blood per rectum. He does not describe it as dark nor bright, but it was somewhat liquid. He has had no associated hematemesis. Since admission yesterday, he has undergone 2 unit blood transfusion. His hematocrit is now 22.7. Quite notably, he is on Eliquis anticoagulant (none since admission) related to an episode of portal vein thrombosis per his description, but not evident in information I have available to me in the computer at this time. Given his rectal bleeding, consultation is requested for consideration of further endoscopic evaluation. Notably, the patient has no dysphagia or hematemesis. He has no abdominal pain necessarily, but does feel slightly bloated. Electronically Signed By: DANIEL AUSTIN MD 02/10/22 1211 PATIENT NAME: EDILIA PACE CONSULTATION DATE OF : 54 REPORT #: [id number] PHYSICIAN: DANIEL AUSTIN MD PCP: GLENN RODGERS MD REPORT IS CONFIDENTIAL AND NOT TO BE RELEASED WITHOUT AUTHORIZATION [facility] [address], [place] [address] Signed He did undergo a CT scan of the abdomen at 7:30 p.m. last night, which confirmed a percutaneous drain within the parenchyma of the liver. There was subtle parenchymal hypoattenuation of 3.9 cm in size compared to 5.2 cm in size previously, though measurements are challenging on the basis of absence of intravenous contrast. Multiple hepatic lesions were noted consistent with metastatic disease. There was gallbladder wall thickening. The bile duct showed pneumobilia as would be expected based on stenting. Pancreas had coarse calcifications and a less conspicuous pancreatic head mass compared to prior evaluation. The small bowel and colon appeared normal. There is moderate colonic stool burden in the right colon. There were significant aortic calcifications. Omental nodularity was also noted consistent with underlying malignant disease. REVIEW OF SYSTEMS: He denies any hematemesis or shortness of breath. He has had no hemoptysis. He denies abdominal pain at this time. PHYSICAL EXAMINATION: GENERAL: A thin white man accompanied by his . VITAL SIGNS: Showed temperature 97.5, pulse 70, blood pressure 103/60, O2 saturation on room air is 99%. NECK: Shows no thyromegaly or cervical adenopathy. CHEST: Shows diminished respiratory excursion. Has a bony thorax consistent with chronic weight loss. HEART: Regular. ABDOMEN: Mildly distended possibly with ascites. There is no focal tenderness or mass. EXTREMITIES: Show peripheral edema of the ankles with 4+ pitting. I reviewed the CT scan images as well as the reports and pertinent labs and I have discussed the case with Dr. Frias as well. Quite notably, his COVID test is negative and electrolytes are reasonably normal with a creatinine of 0.57 and yesterday his liver enzyme is elevated with an AST of 124, ALT 111, alkaline phosphatase 2146, bilirubin of only 0.7. ASSESSMENT: The patient's source of GI bleeding is uncertain. Consideration has to be made for a biliary source given the drain within the liver, however. I think it is unlikely as there was essentially no output from the drain itself. Indeed, the patient was to see me two days from now in the office for consideration of removal of the hepatic abscess drain. If he were to have hemobilia more likely than not the drain would have some evidence of bleeding in it as well. He has no dysphagia or epigastric pain to suggest neoplastic change of the GI tract in the upper aspect (other than pancreas of course), but ulcer disease or gastritis or other similar etiologies could be possible. The fact he has had no hematemesis is notable and although it does not guarantee no upper GI source, a distal source such as Electronically Signed By: DANIEL AUSTIN MD 02/10/22 1211 PATIENT NAME: EDILIA PACE CONSULTATION DATE OF : 54 REPORT #: [id number] PHYSICIAN: DANIEL AUSTIN MD PCP: GLENN RODGERS MD REPORT IS CONFIDENTIAL AND NOT TO BE RELEASED WITHOUT AUTHORIZATION [facility] [address] [place], [place] [address] Signed ulcer and so forth would be a possibility as well. The fact he is on anticoagulant Eliquis for presumed prior portal venous thrombosis would indicate a high probability of esophageal varices. The patient and his seemed to have no prior knowledge of esophageal varices and he has had at least two ERCPs in the past two years and although at increased risk for it he has not been noted to have that thus far. The possibility of a lower GI source of bleeding is reasonable as well. Review of my previous colonoscopy report in 2006 does demonstrate he had arteriovenous malformations which did undergo a limited ablation at that time. Alternatively, other causes including colitis related to his chemotherapeutic regimen is possible. However, he has not really had diarrhea per se. The possibility of colonic neoplasm proper is considered, though again probably of little concern in the scheme of things given his advanced pancreatic cancer problem. I discussed with Dr. Frias a plan for upper endoscopy and concurrent colonoscopy. His Eliquis should be withheld for the time being. Continued monitoring of his hematocrit and clinical monitoring (ie rectal bleeding will also be ongoing. The risks of upper and lower endoscopic procedures including bleeding, infection, and perforation were reviewed with the patient and his . They understand and wish to proceed. More likely than not, this would be done on rather than tomorrow given his need for bowel prep as well as his current intake of solid foods at this time. More importantly, normalization of his anticoagulant effects of the thrombin inhibitor is important. Daniel Austin MD JM/MODL /[id number] cc: MD Glenn Webb MD Copies: MIGUEL FRIAS MD Electronically Signed By: DANIEL AUSTIN MD 02/10/221210 PATIENT NAME: KATELYNNEDILIAVEE MCKAY CONSULTATION DATE OF : 54 REPORT #: [id number] PHYSICIAN: DANIEL AUSTIN MD PCP: GLENN RODGERS MD REPORT IS CONFIDENTIAL AND NOT TO BE RELEASED WITHOUT AUTHORIZATION [facility] [address] [place], [place] [address] Signed GLENN REGALADO MD ~ Electronically Signed By: DANIEL AUSTIN MD 02/10/221210 PATIENT NAME: EDILIA PACE CONSULTATION DATE OF : 54 REPORT #: [id number] PHYSICIAN: DANIEL AUSTIN MD PCP: GLENN RODGERS MD REPORT IS CONFIDENTIAL AND NOT TO BE RELEASED WITHOUT AUTHORIZATION
--- NOTE | 2022-02-10 12:48 | NUR ---
THIS RN TO ROOM TO CHECK ON PT. PT RESTING IN BED WITH EYES CLOSED. RESPIRATIONS EVEN AND UNLABORED. PT ALLOWED TO REST. CALL LIGHT WITHIN REACH. BED RAILS UP.
--- NOTE | 2022-02-10 13:19 | NUR ---
AFTERNOON ASSESSMENT DUE. PT CALL LIGHT ON. PT REQUESTS ASSISTANCE UP TO RESTROOM. STAND BY ASSIST UP TO RESTROOM, FOR LINE MANAGEMENT. PT VOIDS BUT MISSES HAT, CLEAR YELLOW URINE. NO BOWEL MOVEMENTS NOTED. YET. PT HAS FINISHED FIRST BOTTLE OF MIRRALAX. MID LINE REMAINS WNL, NO S/S OF PHLEBITIS NOTED. PRE REMAINS ALERT AND ORIENTED TO ALL. HEART TONES REGULAR, LUNG SOUNDS CLEAR +3 PITTING EDEMA NOW PRESESNT UP TO MID CALF. +2 PITTING EDEMA NOTED TO LEFT ARM. SCD'S PLACED. LEGS ELEVATED ON A PILLOWS. LEFT ARM ELEVATED. BOWEL TONES ACTIVE. ABDOMEN REMAINS TENDER AND FIRM TO PALPATION. ALLEVYN NOTED TO RIGHT ARM. PT REPORTS HE "BUMPED IT" WITH A SMALL SKIN TEAR YESTERDAY. ALLEVYN REMAINS IN PLACE, C/D/I. PTS BRINGING IN PTS "WAFFEL" PAD TO SIT ON TO RELEIVE COCCYX PRESSURE. HEPATIC DRAIN REMAINS IN PLACE, SCANT YELLOW DRAINAGE NOTED IN BAG. DRESSING ARROUND HEPATIC DRAIN WNL. PT ENCOURAGED TO GET UP TO CHAIR, DECLINES AT THIS TIME. PT RESTING IN BED. NO ADDITIONAL REQUESTS OR COMPLAINTS. CALL LIGHT WITHIN REACH. BED RAILS UP.
--- NOTE | 2022-02-10 14:26 | NUR ---
PT ALERT, ORIENTED AND HAS STARTED HIS PREP FOR SCOPES THURS. STAYED A MOMENT, GAVE ENCOURAGEMENT. PT REQUESTED PRAALYSSA, WILL FOLLOW
--- NOTE | 2022-02-10 15:13 | NUR ---
THIS RN TO ROOM TO CHECK ON PT. PT RESTING IN BED. PTS HOME "WAFFEL" PILLOW PLACED UNDER BACKSIDE WHICH PT STATES IS "REALY HELPING." PT REPORTS PAIN AT 4/10 AND DENIES NEED FOR PAIN MEDICATION AT THIS TIME. PT YET TO HAVE BOWEL MOVEMENT, PT PASSING JULIANA AND BOWEL TONES VERY ACTIVE. PT ENCORUAGED TO AMBULATE, PT DECLINES STATING "MAYBE LATER." PTS AT BEDSIDE. NO ADDITIONAL REQUESTS OR COMPLAINTS. CALL LIGHT WITHIN REACH. BED RAILS UP.
--- NOTE | 2022-02-10 16:53 | NUR ---
THIS RN TO ROOM TO CHECK ON PT. PT CONTINUES TO REPORT FEELING BLOATED, NO BOWEL MOVEMENTS NOTED. PT REPORTS PASSING JULIANA. BOWEL TONES HEARD. PT UP TO AMBULATE IN GERMAIN X1 LAP. PT REPORTS FEELING "CRAMPING" WITH AMBULATION AND "LIKE I'LL HAVE TO GO SOON." PT UP TO CHAIR. PT REPORTS 4/10 PAIN IN BACKSIDE, "WAFFEL" PILLOW IN PLACE. PT DENIES NEED FOR PAIN MEDICATION AT THIS TIME. PT DENIES ADDITIONAL REQUESTS OR COMPLAINTS. CALL LIGHT WITHIN REACH. FAMILY AT BEDSIDE.
--- NOTE | 2022-02-10 17:25 | NUR ---
STERLING IS SITTING UP IN CHAIR VISITING WITH . I&O AND VITALS CHARTED. CALL LIGHT WITHIN REACH NO FURTHER TASKS AT THIS TIME
--- NOTE | 2022-02-10 17:47 | NUR ---
PT HERE FOR ACUTE GI BLEED. PT UP WITH STAND BY ASSIST AND FWW TO RESTROOM, CHAIR AND TO AMBULATE IN GERMAIN THIS SHIFT. BOWEL PREP GIVEN THIS SHIFT CLEAR LIQUID DIET WITH LIMITED APPITITE. PT FEELING BLOATED THIS AFTERNOON. NO BOWEL MOVEMENTS NOTED YET THIS SHIFT. HEPTATIC DRAIN REMAINS IN PLACE, SCANT TO NO DRAINAGE, WHAT CAN BE SEEN IS YELLOW IN COLOR. PT ALERT AND OREINTED. HEART TONES REGULAR, LUNG SOUNDS CLEAR. +2-3 PITTING EDEMA NOTED IN BLE AND FEET. SCD'S APPLIED. COLONOSCOPY PLANNED FOR TOMORROW. TS AT BEDSIDE THROUGHOUT SHIFT. PT VOIDING QUANTITIY SUFFICIENT. PT USES CALL LIGHT AND MAKES NEEDS KNOWN.
--- NOTE | 2022-02-10 17:59 | NUR ---
PT CALL LIGHT ON. PT REQUESTS ASSISTANCE UP TO RESTROOM. STAND BY ASSIST UP TO RESTROOM. PT REPORTS PASSING "A LOT OF GAS." NO BOWEL MOVEMENTS NOTED. PT CONTINUES TO REPORT ABOMDINAL CRAMPING AND MOVEMENT.STAND BY ASSIST BACK TO BED. PT POSITIONS SELF IN BED. NEW IV FLUIDS ORDER HUNG. MID LINE ASSESSED, WNL. NO S/S OF PHLEBITIS NOTED. PT REPORTS 3/10 PAIN IN BACKSIDE. WAFFLE PILLOW IN USE. PT DENIES NEED FOR PAIN MEDICATION. NO ADDITIONAL REQUESTS OR COMPLAINTS. CALL LIGHT WITHIN REACH. BED RAILS UP.
--- NOTE | 2022-02-10 18:18 | NUR ---
PT CALL LIGHT ON. PT REPORTS NEED TO USE THE RESTROOM. STAND BY ASSIST UP TO RESTROOM. PT HAS LARGE LOOSE BOWEL MOVEMENT. RED NOTES NOTED TO BOWEL MOVEMENT. PT PERFORMS SELF ROBERTO CARLOS CARE. STAND BY ASSIST BACK TO BED. CALL LIGHT WITHIN REACH. BED RAILS UP.
--- NOTE | 2022-02-10 18:45 | NUR ---
PT CALL LIGHT ON. PT REQUESTS ASSISTANCE UP TO RESTROOM. STAND BY ASSIST UP TO RESTROOM. PT HAS AN ADDITIONAL LOOSE BOWEL MOVEMENT. PT PERFORMS SELF ROBERTO CARLOS CARE. STAND BY ASSIST BACK TO BED. BROTH WARMED FOR PT. PT DENIES ADDITIONAL REQUESTS OR COMPALINTS. CALL LIGHT WITHIN REACH. BED RAILS UP.
--- NOTE | 2022-02-10 19:29 | NUR ---
IN ROOM FOR REPORT, PT IS AWAKE IN BED. HE DENIES NEEDS. IV IS INFUSING FINE. CALL LIGHT IS CLOSE.
--- NOTE | 2022-02-10 19:53 | NUR ---
PT HAD A LIQUID BM, HE IS NOW BACK IN BED AND DENIES FURTHER NEEDS. SCDS IN PLACE AND CALL LIGHT IS CLOSE.
--- NOTE | 2022-02-10 20:30 | NUR ---
ASSIST PT TO THE TOILET, SBA, BACK TO BED, VS TAKEN, URINAL BROUGHT TO BEDSIDE, FRESH BROTH PROVIDED, NO FURTHER NEEDS AT THIS TIME
--- NOTE | 2022-02-10 21:00 | NUR ---
PT UP TO THE TOILET, BACK TO BED, SBA, NO FURTHER NEEDS AT THIS TIME
--- NOTE | 2022-02-10 22:45 | NUR ---
IN ROOM TO ASSESS PT AND ADMINISTER MEDICATIONS. SBA TO BATHROOM AND BACK TO BED. PT REPORTS PAIN 4/10 IN BACK/BACKSIDE, ADMINISTERED NORCO FOR PAIN. PT'S IV IS INFUSING FINE. PT HAS HAD MULTIPLE LIQUID BMS THAT ARE CLEARING UP. PT HAS WAFFLE (FOAM CUSHIN) UNDER HIS BOTTOM AND REPORTS HE DOES NOT NEED ANYMORE PILLOWS OR REPOSITIONING. PT DENIES FURTHER NEEDS AT THIS TIME. CALL LIGHT IS CLOSE.
--- NOTE | 2022-02-11 00:15 | NUR ---
PT UP TO THE TOILET, BACK TO BED, NPO AT MIDNIGHT, NO FURTHER NEEDS AT THIS TIME
--- NOTE | 2022-02-11 01:06 | NUR ---
PT IS RESTING WITH EYES CLOSED, RR IS EVEN AND UNLABORED. CALL LIGHT IS CLOSE AND IV IS INFUSING FINE.
--- NOTE | 2022-02-11 01:50 | NUR ---
PT BACK TO BED FROM THE TOILET, NO FURTHER NEEDS AT THIS TIME
--- NOTE | 2022-02-11 03:07 | NUR ---
PT IS RESTING WITH EYES CLOSED, RR IS EVEN AND UNLABORED. CALL LIGHT IS CLOSE, IV IS INFUSING FINE.
--- NOTE | 2022-02-11 05:01 | NUR ---
PT IS RESTING WITH EYES CLOSED, RR IS EVEN AND UNLABORED. CALL LIGHT IS CLOSE AND IV IS INFUSING FINE.
--- NOTE | 2022-02-11 05:56 | NUR ---
IN ROOM TO DRAW BLOOD FROM MIDLINE. STOPPED IV FLUIDS FOR FOR 3 MINUTES, WASTED 7MLS OF BLOOD. 6MLS DRAWN AND HANDED TO STOVE MOUNTER TOMMY TO PUT IN VIAL. ASSISTED PT TO RESTROOM AND BACK TO BED. DID PREPROCEDURE CHECKLIST WITH PT AND HE DENIES FURTHER NEEDS. CALL LIGHT IS CLOSE.
--- NOTE | 2022-02-11 07:21 | NUR ---
REPORT RECEIVED FROM [place] [place]. PT RESTING IN BED, PT REPORTS 2/10 PAIN IN BACKSIDE THAT IS "A LOT BETTER." WAFFEL PILLOW REMAINS IN PLACE. PT DENIES NEED FOR PAIN MEDICATION. PT DENIES ADDITIONAL REQUESTS OR COMPLAINTS AT THIS TIME. CALL LIGHT ZACH LU. BED RAILS UP.
--- NOTE | 2022-02-11 07:32 | NUR ---
MORNING ASSESSMENT AND MEDICATION DUE. PT RESTING IN BED ON BACK. PT REPORTS 2/10 PAIN IN HIS BACKSIDE. PT DENIES NEED FOR PAIN MEDICATION AT THIS TIME. PT DENIES NAUSEA. PT ALERT AND ORIENTED TO ALL. MID LINE ASSESSED, WNL. BRISK BLOOD RETURN NOTED.IV FLUIDS CONTINUE. LR ON STRAIGHT TUBING AT BEDSIDE FOR OR USE. PT UP TO RESTROOM WITH STAND BY ASSIST, PT STEADY ON FEET. BOWEL MOVEMENTS MOSTLY CLEAR WITH SMALL AMOUNTS OF SEDIMENT. PT PERFORMS SELF ROBERTO CARLOS CARE, STAND BY ASSIST BACK TO BED. PRE PROCEEDURE CHECK LIST COMPLETE. +2 PITTING EDEMA TO LEFT ARM, IMPROVING, NOW IN SMALLER AREA. +2-3 PITTING EDEMA TO BLE AND FEET. UNCHANGED. SCD'S IN PLACE. ABDOMEN LESS FIRM TODAY. BOWEL TONES ACTIVE. PT CONTINUES TO REPORT TENDERNESS TO ABDOMEN WITH PALPATION. LARGE SOFT LUMP NOTED TO PTS LEFT BACK AT LEVEL OF LOWER RIBS. LUMP THE SIZE OF PTS HAND. NO PITTING NOTED. PT UNAWARE OF PRESENCE OF LUMP. HEPATIC DRAIN REMAIN IN PLACE. DRESSING C/D/I, SCANT YELLOW DRAINAGE NOTED IN BAG, UNMEASURABLE AMOUNT. PT CONTINUES TO REST IN BED. PTS ARRIVED TO BEDSIDE. UPDATED ON PLAN OF CARE, VEBALIZES UNDERSTANDING AND STATES HER QUESTIONS HAVE BEEN ANSWERED. NO ADDITIONAL REQUESTS OR COMPLAINTS. CALL LIGHT WITHIN REACH. BED RAILS UP.
--- NOTE | 2022-02-11 08:30 | NUR ---
PT TO ENDOSCOPY FOR PROCEEDURE. REPORT GIVEN BY CHARGE NURSE TO OR STAFF.
--- NOTE | 2022-02-11 11:01 | NUR ---
PT RETURNED FROM ENDOSCOPY. PT TRANSFERED OVER TO MED/SURG BED BY AMBULATION WITH 1 PERSON STAND BY ASSIST. VITAL SIGNS STABLE. PT WEANED TO ROOM AIR. LUNG SOUNDS CLEAR. PT MAINTAINING OXYGEN SATURATION ABOVE 94%. PT REPORTS 4/10 PAIN IN ABDOMEN AT THIS TIME. PT ENCORAUGED TO PASS GAS. PT ALERT AND OREINTED TO ALL, MILDY DROWSY AND SLOWER TO RESPOND TO QUESTIONS AT THIS TIME. HEAR TONES REGULAR. LUNG SOUNDS CLEAR. IV FLUIDS RESTARTED. BOWEL TONES HEARD, ABODOMEN MILDY TENDER TO TOUCH AND FIRM PRIOR TO PROCEEDURE. PT RESTING IN BED. NO ADDITIONAL NEEDS AT THIS TIME. BED RAILS UP. CALL LIGHT WITHIN REACH. BED ALARM ON.
--- NOTE | 2022-02-11 11:26 | NUR ---
02/11/22 1126 Sheets,[place]mer[place] 0929 PT ARRIVED TO PACU ON 6L VIA MASK, O2 SAT LOW 80S AND DECREASED BP NOTED. SAVE ALL OPERATOR AT BEDSIDE, NO NEW ORDERS AT THIS TIME. 0933 PT O2 CONTINUES TO REMAIN LOW AND O2 INCREASED TO 15L VIA NONREBREATHER MASK. PT NONAROUSABLE TO PAINFUL STIMULI. RESP RATE INCREASED, EVEN AND UNLABORED. 0949 O2 TO DECREASE TO 79% AND BP 80S/60S. SAVE ALL OPERATOR AT BEDSIDE, PT ROLLED TO BACK AND HOB INCREASED SLIGHTLY. BP INCREASED SLIGHTLY, 94/73. PT REACTIVE TO PAINFUL STIMULI AND ENCOURAGED TO DEEP BREATHE AND COUGH. PT ABLE TO FOLLOW COMMANDS AND DEEP BREATHING, WAEK COUGHING NOTED. 1012 PT MORE AWAKE AND O2 REMAINS IN THE 90S AND PT ABLE TO COUGH AND DEEP BREATHE, PT COUGHING UP PINK TINGED SPUTUM NOTED. PT USING TISSUE AND EDUCAITON GIVEN ABOUT COUGHIING AND SPITTING OUT SPUTUM AND PASSING GAS NEEDED. O2 DECREASED TO 10L. 1014 O2 NC PLACED AT 4L AND PT TALKING TO RN. RN CONTINUES TO REMIND PT TO COUGH AND DEEP BREATHE. 1025 MD AT BEDSIDE TALKING TO PT. 1032 O2 DECREASED TO 2L VIA NC. VSS. 1050 REPORT TO MED-CANDLE MOLDER AT BEDSIDE. PT STOOD AT EDGE OF BED AND TRANSFERED TO MED-SURG BED.
--- NOTE | 2022-02-11 11:50 | NUR ---
VITAL SIGNS DUE. THIS RN TO ROOM. PT RESTING IN BED. PT REPROTS 3/10 ABDOMINAL DISCOMFORT "LIKE GAS PAIN." PT DENIES NEED FOR PAIN MEDICATION. PT ENCORUAGED TO PASS GAS, REPORTS IS PASSING "A LITTLE" GAS. VITAL SIGNS STABEL. PT TOELRATING PO FLUIDS. 125ML EMPTIED FROM URINAL. PT DENIES ADDITIONAL REQUESTS OR COMPLAINTS. CALL LIGHT WITHIN REACH. BED RAILS UP. BED ALARM ON.
--- NOTE | 2022-02-11 12:58 | NUR ---
VITAL SIGNS DUE. PT RESTING IN BED, EATTING PUDDING. PT REPORTS 4/10 PAIN IN ABDOMEN THAT HE CONTINUES TO DESCRIBE "GAS PAINS." PT REPORTS PASSING "A LITTLE" GAS BUT "NOT MUCH." PT AGREES TO AMBULATE IN THE NEXT HOUR. VITAL SIGNS STABLE. PT DENIES NEED FOR PAIN MEDICATION. ABDOMEN FIRM TO TOUCH, PT REPORTS ABDOMEN IS NOT DISTENDED. NO ADDITIONAL NEEDS AT THIS TIME. CALL LIGHT WITHIN REACH. BED RAILS UP.
--- NOTE | 2022-02-11 13:20 | NUR ---
PT TAKEN TO OR FOR SCOPE. CONNECTED WITH PT'S CAMILLA.SHE WAS VERY RELIEVED THAT SO FAR THE RESULTS FROM THE SCOPE SHOWS NOT CANCER WHICH PT WAS SURE OF! GAVE ENCOURAGEMENT, WILL FOLLOW
--- NOTE | 2022-02-11 13:48 | NUR ---
VITALS AND ASSESSMENT DUE. PT RESTING IN BED WITH EYES CLOSED, RESPIRATIONS EVEN AND UNLABORED. PT TOELRATING ROOM AIR WITH OXYGEN SATURATIONS ABOVE 94%. PT REPORTS 3/10 ABDOMINAL PAIN THAT HE ATTRIBUTES TO GAS PAIN. PT REPORTS HE HAS NOT PASSED ANY ADDITIONAL GAS. PT ENCORAUGED TO AMBULATE, PT REPORTS "NO RIGHT YET." PT AGREES TO AMBULATE LATER THIS AFTERNOON. ABDOMEN REMAINS FIRM TO TOUCH PER PTS BASELINE. BOWEL TONES HEARD. PT DENIES PAIN TO HIS "BACKSIDE." "WAFFEL" PILLOW REMAINS IN PLACE. MIDLINE WNL, NO S/S OF PHELBITIS NOTED. EDEMA TO BLE AND LUE UNCHANGED. SCD'S IN PLACE. PT REPORTS ABDOMEN IS PER HIS BASELINE, APPEARS MILDY DISTENDED. PT HAS MINIMAL APPITITE FOR FULL LIQUID DIET, HAS EATEN 0.5 OF A PUDDING BUT STATES HE IS "WORKING ON IT." ADDITONAL ITEMS REMAIN AT BEDSIDE. PT RETURNS TO RESTING WITH EYES CLOSED, RESPIRATIONS EVEN AND UNLABORED. PTS AT BEDSIDE. BED RAILS UP. BED ALARM ON. CALL LIGHT WIHTIN REACH.
--- NOTE | 2022-02-11 14:28 | NUR ---
PT RESTING IN BED, BIG SMILE ON HIS FACE. RELIEVED THAT NO TUMOR WAS FOUND! CAMILLA PRESENT, GAVE BLESSING. WILL FOLLOW
--- NOTE | 2022-02-11 15:11 | NUR ---
THIS MORNING I ASKED PATIENT IF HE WOULD LIKE TO WASH HIS FACE OR BRUSH HIS TEETH AND HE SAID NOT RIGHT NOW. AFTER HE LEFT I CHANGED HIS BED LINENS.
--- NOTE | 2022-02-11 15:37 | NUR ---
ROUNDED ON PT. PT LYING IN BED WATING PUDDING. AT BEDSIDE. MEDICAID LETTER SIGNED. NO QUESTIONS. CALL LIGHT IN AMPARO
--- NOTE | 2022-02-11 16:00 | NUR ---
Spoke with pts , She states they had good news as they did not find cancer during colonoscopy. They are awaiting biopsies. She denies other needs at this time.
--- NOTE | 2022-02-11 16:07 | NUR ---
THIS RN TO ROOM TO CHECK ON PT. PT RESTING IN BED. PT REPORTS 5/10 PAIN IN "MY BACKSIDE." PT REQUESTS PAIN MEDICATIONS, SEE MAR FOR MEDICATION GIVEN. PT ENCOAURGED TO AMBULATE. 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 MEDICATIONS GIVEN (SEE MAR). PT REPORTS HE HAS BEEN PASSING JULIANA. NO ADDITIONAL REQUESTS OR COMPLAINTS. CALL LIGHT WITHIN REACH.
--- NOTE | 2022-02-11 16:45 | NUR ---
rn in room to answer call light pt requesting to get up to walk, pt able to do 1.5 lap around unit. tolerated well.
--- NOTE | 2022-02-11 16:56 | NUR ---
PT AMBULATEDOUT IN GERMAIN WITH . TOLERATED WELL. DENEIS NEEDS. CALL LIGHT IN REACH.
--- NOTE | 2022-02-11 18:04 | NUR ---
REPORT RECEIVED FROM [facility] [place]. THIS RN REASSUMING CARE OF PT. THIS RN TO ROOM TO CHECK ON PT. PT RESTING IN BED. PT REPORTS HE WAS ABLE TO ABMULATE WITHOUT ISSUE. PT REPORST A SMALL BOWEL MOVEMENT AND PASSING GAS. PT REPORTS 2/10 PAIN IN BACKSIDE AND ABDOMEN "IS A LITTLE TENDER." PT DENIES ADDITIONAL REQUESTS OR COMPLAINTS. CALL LIGHT WITHIN REACH. BED RAILS UP.
--- NOTE | 2022-02-11 19:00 | NUR ---
PT HERE FOR ACUTE GI BLEED. 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 PT RECOVERED POST PROCEEDURE WELL. PT UP WITH STAND BY ASSIST TO AMBULATE IN GERMAIN AND TO RESTROOM. PT TOLERATING FULL LIQUID DIET. CAREAFATE STARTED. HEPATIC DRAIN REMAINS IN PLACE. IV NOW SALINE LOCKED, PO FLUIDS ENCOURAGED PT VOIDIGN QUATNITY SUFFICIENT. LUMP FOUND ON LEFT BACK THIS SHIFT BUT RESOLVED BY EVENING, SUSPECTED THIS WAS ADDITIONAL EDEMA. PTS AFMILY AT BEDSIDE THROUGHOUT SHIFT. PT USES CALL LIGHT AND MAKES NEEDS KNOWN.
--- NOTE | 2022-02-11 22:38 | NUR ---
PT REQUEST SCD'S BE REMOVED. STATES HE IS UNABLE TO SLEEP WITH THEM ON. MELATONIN AND NORCO GIVEN. PT STATES PAIN TO BACK RATING 5 OUT OF 10.
--- NOTE | 2022-02-12 01:55 | NUR ---
pt awake when checked on during rounding. Feels that he will be able to get back to sleep. Urinal emptied. Lights adjusted per pt satisfaction. Denies any other needs.
--- NOTE | 2022-02-12 06:21 | NUR ---
HAD AN UNEVENTFUL NIGHT. O2 AT 5 LPM ALL SHIFT. STRONG LOOSE COUGH NOTED.
--- NOTE | 2022-02-12 08:27 | NUR ---
Patient ambulated back from the restroom with the assistance of his . C/O his coccyx hurting, assessed his coccyx and it is red blanchable. I offered him a alleyn foam dressing and he declined, but took tylenol. Assessment and AM medication were given.
--- NOTE | 2022-02-12 10:40 | NUR ---
Pain has improved, reporting pain level of a 3/10. He was repositioned, and updated on the next schedule medications, and his plan of care. continues to be at the bedside.
--- NOTE | 2022-02-12 11:07 | NUR ---
REMOVED DRAINAGE DRESSING, SITE INTACT, SUTURES IN PLACE
--- NOTE | 2022-02-12 11:42 | NUR ---
PT LAYING FLAT IN BED, VISITING WITH SPOUSE. SHE SAID PT IS COMPLAINING AND THAT MEANS HE IS FEELING BETTER! GAVE ENCOURAGEMENT, WAITING FOR VISIT FROM DR AUSTIN. WILL FOLLOW NEEDED
[2022-02-12] MEDS ORDERED: SUCRALFATE1 GM PO (13:09)
[2022-02-12] MEDS ORDERED: OMEPRAZOLE20 MG PO (13:12)
--- NOTE | 2022-02-12 13:55 | NUR ---
INTAKE AND OUTPUT COMPLETED, SHOWERED COMPLETED. TEMPORARY OSTOMY BAG PLACED OF DRAIN REMOVAL SITE, UNTIL DR. AUSTIN, PLACED A COUPLE OF STITCHS.
--- NOTE | 2022-02-12 16:09 | NUR ---
DISCHARGED DISCUSSED IN DETAIL WITH THE PATIENT AND HIS AT BEDSIDE. PHARMACY ALSO DISCUSSED MEDICATIONS WITH THE PATIENT. MIDLINE ACCESS WAS REMOVED BY CHRIS MCKEON RN. SITE C/D/I AT TIME OF DISCHARGE.
--- NOTE | 2022-02-15 15:37 | PATH ---
[facility] [address] [place], [place] [address] Signed SPECIMEN(S): A DUODENUM ULCER BASE BIOPSY SPECIMEN(S): B ANTRUM/PYLORUS BIOPSY SPECIMEN(S): C DISTAL ESOPHAGEAL BIOPSY SPECIMEN(S): D TRANSVERSE COLON POLYP SPECIMEN SOURCE: A. DUODENUM ULCER BASE BIOPSY B. ANTRUM/PYLORUS BIOPSY C. DISTAL ESOPHAGEAL BIOPSY D. TRANSVERSE COLON POLYP CLINICAL HISTORY: Acute GI bleed, blood loss anemia. Postop: Duodenal ulcer, polyp transverse colon. FINAL PATHOLOGIC DIAGNOSIS: A. Duodenum, ulcer base, biopsy: - Adenocarcinoma. - Background fragments of ulcer and peptic duodenitis. - See comment. B. Stomach, antrum/pylorus, biopsy: - Antral mucosa with chronic, inactive gastritis. - Negative for Helicobacter organisms on HE stain. - Negative for dysplasia or malignancy. C. Esophagus, distal, biopsy: - Acute esophagitis with ulcer. - Negative for intestinal metaplasia, dysplasia, or malignancy. D. Colon, transverse, polyp, polypectomy: - Tubular adenoma. - Negative for high-grade dysplasia or malignancy. COMMENT: Regarding specimen A: The history of pancreatic adenocarcinoma diagnosed on biopsy from 08/05/2020 [id number]) status post chemoradiation is noted. The tumor is positive for CK7 and weakly positive for CK20, but negative for TTF-1.This immunohistochemical profile is non-specific, however given the history, the adenocarcinoma present within this biopsy is favored to represent pancreatic adenocarcinoma via direct extension or metastasis. Other sources of adenocarcinoma such as primary duodenal or upper gastrointestinal cannot be entirely excluded; the negativity for TTF-1 argues PATIENT NAME: EDILIA PACE PATHOLOGY DATE OF : 54 REPORT #: [id number] PHYSICIAN: HIEUFliiby PATHOLOGY PCP: GLENN RODGERS MD REPORT IS CONFIDENTIAL AND NOT TO BE RELEASED WITHOUT AUTHORIZATION [facility] [address] [place], [place] [address] Signed against metastatic lung adenocarcinoma. Additional immunohistochemical stains can be performed upon request. As part of [facility] Quality Improvement Program, this case was reviewed by another member of our pathology staff. The results were discussed with Dr. Valverde on 02/12/2022. NAL:cml:C1NR MICROSCOPIC EXAMINATION: Histologic sections of all submitted blocks are examined by light microscopy. These findings, together with the gross examination, support the pathologic diagnosis. Immunohistochemical stains (with appropriately staining controls) were performed on the adenocarcinoma in the duodenal ulcer biopsy (specimen A). The tumor is strongly positive for CK7, weakly positive for CK20, but negative for TTF1. A PAS/D stain (with appropriately staining controls) on specimen C is negative for fungal organisms. GROSS DESCRIPTION: Four specimens are received in four containers, labeled "LG." A. The specimen, labeled "LG, 1," and designated on the requisition "duodenal ulcer base," is received in formalin and consists of four zhong soft tissue fragments that measure 0.1-0.3 cm in greatest dimension. The specimen is entirely submitted in cassette (A1). B. The specimen, labeled "LG, 2," and designated on the requisition "antrum/pylorus," is received in formalin and consists of two zhong soft tissue fragments that measure 0.3 cm in greatest dimension. The specimen is entirely submitted in cassette (B1). C. The specimen, labeled "LG, 3," and designated on the requisition "distal esophagus," is received in formalin and consists of two zhong soft tissue fragments that measure 0.1-0.3 cm in greatest dimension. The specimen is entirely submitted in cassette (C1). D. The specimen, labeled "LG, 4," and designated on the requisition "transverse colon," is received in formalin and consists of one zhong soft tissue fragment that measures 0.3 cm in greatest dimension. The specimen is entirely submitted in cassette (D1). AT (under the direct supervision of a pathologist) The Gross Description was prepared using a voice recognition system. The report was reviewed for accuracy; however, sound-alike word errors, addition and/or deletions may occur. If there is any question about this report, please contact Client Services. PATIENT NAME: EDILIA PACE PATHOLOGY DATE OF : 54 REPORT #: [id number] PHYSICIAN: SARKIS PHILLIPS PCP: GLENN RODGERS MD REPORT IS CONFIDENTIAL AND NOT TO BE RELEASED WITHOUT AUTHORIZATION [facility] [address] [place] [id number] Signed PERFORMING LABORATORY: The technical component was performed by [facility], [address] [place] [id number] (CLIA# [id number]). The technical preparation was performed by [facility], [address] [place] [address] (IA#: [id number]). Diagnostician: Smiley Choi MD Pathologist Electronically Signed 02/15/2022 Copies: ~ PATIENT NAME: EDILIA PACE PATHOLOGY DATE OF : 54 REPORT #: [id number] PHYSICIAN: SARKIS PATHOLOGY PCP: GLENN RODGERS MD REPORT IS CONFIDENTIAL AND NOT TO BE RELEASED WITHOUT AUTHORIZATION
== END 2022-02-12 16:18 | disposition home or self-care (01) | DRG 374 ==
LOC: ED 14:20 → MS 17:24
PROVIDERS: Surgery; ADMIT Internal Medicine; ATTEND Internal Medicine
PROC: 30233N1 Transfusion of Nonautologous Red Blood Cells into Peripheral Vein, Percutaneous Approach (ICD-10-PCS; principal; 2022-02-08 23:10)
PROC: 0DB98ZX Excision of Duodenum, Via Natural or Artificial Opening Endoscopic, Diagnostic (ICD-10-PCS; 2022-02-11)
PROC: 0DB38ZX Excision of Lower Esophagus, Via Natural or Artificial Opening Endoscopic, Diagnostic (ICD-10-PCS; 2022-02-11)
PROC: 0DB78ZX Excision of Stomach, Pylorus, Via Natural or Artificial Opening Endoscopic, Diagnostic (ICD-10-PCS; 2022-02-11)
PROC: 0DBL8ZZ Excision of Transverse Colon, Via Natural or Artificial Opening Endoscopic (ICD-10-PCS; 2022-02-11 09:30)
DX: C78.4 Secondary malignant neoplasm of small intestine (principal); K26.4 Chronic or unspecified duodenal ulcer with hemorrhage; I81 Portal vein thrombosis; D62 Acute posthemorrhagic anemia; C25.9 Malignant neoplasm of pancreas, unspecified; C78.7 Secondary malignant neoplasm of liver and intrahepatic bile duct; D68.59 Other primary thrombophilia; K63.5 Polyp of colon; L40.8 Other psoriasis; F17.200 Nicotine dependence, unspecified, uncomplicated; Z79.899 Other long term (current) drug therapy; Z98.890 Other specified postprocedural states; Z79.01 Long term (current) use of anticoagulants; Z20.822 Contact with and (suspected) exposure to COVID-19
CPT/HCPCS: 00731; 36415; 36430; 36569; 74176; 80048; 80053; 83735; 84100; 84484; 85025; 85060; 86850; 86900; 86901; 86922; 93005; 93010; 99285-25; A9270; C1751; C9113; C9803; J2250; J2370; J2704; J3480; J7030; J7121; P9016; U0003

== ENCOUNTER 2022-02-22 05:21 | Emergency (ER) | payer BC ==
[~2022-02-22] VITALS: Ht 175.3 cm; Wt 53.5 kg
[~2022-02-22 05:21] MED LIST changes: +AMOX TR-K CLV1 EAC1 PO; +AUGMENTIN 500-1 EACH PO; +HYDROCODON-ACE1 EA10 PO; +OMEPRAZOLE20 MG PO; +SUCRALFATE1 GM PO; +TYLENOL EXTRA500 MG PO
--- OUTSIDE RECORDS SUMMARY | 2022-02-22 05:28 | XMS ---
PreManage Notification: EDILIA PACE Security Knife Changer Events No recent Security Events currently on file CRITERIA MET - [facility] - 2 Visits in 30 Days CARE PROVIDERS RAJESH VIVAR Physician [employer] 06/09/2020-Current PHONE: Unknown DOUGLAS RODGERS Nurse Practitioner: Family Current PHONE: [phone] GLENN RODGERS [facility] Current PHONE: [phone] Yovanny has no Care Guidelines for this patient. Care History Medical/Surgical 06/09/2020 [facility] - PATIENT HAS AN APT TO ESTABLISH CARE WITH DR VIVAR ON 06/24/2020. - [facility] DISCUSSED RECENT ED VISIT WITH PCP AND THEY WILL LOOK INTO AN EARLIER APT IF PATIENT IS AVAILABLE. Kayce VISIT COUNT (12 MO.) 4 [facility] [place] TOTAL 4 NOTE: Visits indicate total known visits. 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 - Contact with and (suspected) exposure to COVID-19 - Nicotine dependence, unspecified, uncomplicated - Other half-way (current) drug therapy - Weakness - Malignant neoplasm of pancreas, unspecified - Psoriasis, unspecified - Abscess of liver - Sepsis, unspecified organism 12/18/2021 19:15 [facility] [place] TYPE: Emergency COMPLAINT: - WEAKNESS DIAGNOSES: - Radiographic dye allergy status - Personal history of malignant neoplasm of pancreas - Other half-way (current) drug therapy - Contact with and (suspected) exposure to COVID-19 - 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 TYPE: General Medicine DIAGNOSES: - Unspecified severe protein-calorie malnutrition - Sepsis, unspecified organism - Abscess of liver - Liver Abscess, Pancreatic Ca, Hypotension - Severe sepsis with septic shock [email or web address]
--- NOTE | 2022-02-22 08:31 | EKG ---
[facility] [address] [facility] [place], [place] [address] Signed Sinus bradycardia Low voltage QRS Borderline ECG When compared with ECG of 08-FEB-2022 15:07, No significant change was found Confirmed by MIGUEL ARANGO MD ([id number]) on 02/22/2022 8:31:35 AM Electronically Signed By: MIGUEL ARANGO MD 02/22/22 0831 PATIENT NAME: KATELYNNEDILIA Electrocardiogram DATE OF : 54 PHYSICIAN: MIGUEL ARANGO MD REPORT #: [id number] REPORT IS CONFIDENTIAL AND NOT TO BE RELEASED WITHOUT AUTHORIZATION
== END 2022-02-22 09:51 | disposition home or self-care (01) ==
LOC: ED 05:21
DX: R55 Syncope and collapse (principal); L40.9 Psoriasis, unspecified; Z85.07 Personal history of malignant neoplasm of pancreas; F17.210 Nicotine dependence, cigarettes, uncomplicated; Z79.899 Other long term (current) drug therapy
CPT/HCPCS: 36415; 70450; 71045; 72125; 80048; 81001; 85025; 85610; 93005; 93010; 99285-25; J7040

== ENCOUNTER 2022-02-25 09:18 | Emergency (ER) | payer BC ==
[~2022-02-25] VITALS: Ht 175.3 cm; Wt 50.5 kg
--- OUTSIDE RECORDS SUMMARY | 2022-02-25 09:24 | XMS ---
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 Care History Medical/Surgical 06/09/2020 [facility] - PATIENT HAS AN APT TO ESTABLISH CARE WITH DR VIVAR ON 06/24/2020. - CHW DISCUSSED RECENT ED VISIT WITH PCP AND THEY WILL LOOK INTO AN EARLIER APT IF PATIENT IS AVAILABLE. Kayce VISIT COUNT (12 MO.) 5 DONAVAN [place] TOTAL 5 NOTE: Visits indicate total known visits. ED/UCC VISIT TRACKING (12 MO.) 02/25/2022 09:18 [facility] [place] [place] TYPE: Emergency COMPLAINT: - WEAKNESS 02/22/2022 05:21 [place] [facility] [place] TYPE: Emergency COMPLAINT: - WEAKNESS DIAGNOSES: - Psoriasis, unspecified - Other senior care (current) drug therapy - Syncope and collapse - Nicotine dependence, cigarettes, uncomplicated - Personal history of malignant neoplasm of pancreas 02/08/2022 14: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 - Secondary malignant neoplasm of liver and intrahepatic bile duct - Acute posthemorrhagic anemia - Secondary malignant neoplasm of liver and intrahepatic bile duct - Other primary thrombophilia - Chronic or unspecified duodenal ulcer with hemorrhage - Nicotine dependence, unspecified, uncomplicated - Other specified postprocedural states - Contact with and (suspected) exposure to COVID-19 - Other psoriasis - Polyp of colon - 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 - Acute posthemorrhagic anemia - Portal vein thrombosis - Polyp of colon - Other senior care (current) drug therapy - Gastrointestinal hemorrhage, unspecified - Portal vein thrombosis - senior care (current) use of anticoagulants - Malignant neoplasm of pancreas, unspecified - Nicotine dependence, unspecified, uncomplicated - Contact with and (suspected) exposure to COVID-19 - Malignant neoplasm of pancreas, unspecified - Other primary thrombophilia - Other specified postprocedural states - Secondary malignant neoplasm of small intestine - Secondary malignant neoplasm of small intestine - Chronic or unspecified duodenal ulcer with hemorrhage 01/11/2022 02:23 [facility] TYPE: General Medicine DIAGNOSES: - Unspecified severe protein-calorie malnutrition - Sepsis, unspecified organism - Abscess of liver - Liver Abscess, Pancreatic Ca, Hypotension - Severe sepsis with septic shock [email or web address]
[2022-02-25] MEDS ORDERED: FUROSEMIDE20 MG PO (09:41)
[2022-02-25] MEDS ORDERED: POTASSIUM CHLO10 ME1 PO (09:41)
== END 2022-02-25 16:17 | disposition home or self-care (01) ==
LOC: ED 09:18
DX: C78.7 Secondary malignant neoplasm of liver and intrahepatic bile duct (principal); R45.851 Suicidal ideations; R53.1 Weakness; L40.9 Psoriasis, unspecified; F17.200 Nicotine dependence, unspecified, uncomplicated; Z88.8 Allergy status to other drugs, medicaments and biological substances; Z79.899 Other long term (current) drug therapy
CPT/HCPCS: 36415; 80053; 81001; 84443; 85025; 85060; 96374; 96375; 96376; 99285-25; G0480; J1170; J2405; J7040